=== PATIENT | female | born 1980 | race Caucasian/White ===

== ENCOUNTER → 2016-05-04 | Outpatient (CLI) | payer BC | LOC: RAD 08:30 | PROVIDERS: ATTEND Family Medicine | DX: K76.89 Other specified diseases of liver (principal) | CPT/HCPCS: 76705 ==

== ENCOUNTER → 2016-06-11 | Outpatient (CLI) | payer BC ==
[~2016-06-11] MED LIST: AMOX500C5 PO; AZIT250T81 PO; BACL10TA PO; CEPH-507 PO; CETI10TA20 PO; CETI1TAB PO; CIPR2.5D EACH EAR; CYCL5TAB PO; FLUT16SP NSEACH; HYDR-3702 PO; HYDR-3754 PO; LD2VS20U MM; LD2VS20U PO; NF-CIPDEC LEFT EAR; OMEP20TA PO; ONDA4TAB8 PO; OXYC1TAB87 PO; TRM50T PO; [UNRECOGNIZED DRUG - CODE] INJ
--- NOTE | 2016-06-11 19:31 | Diagnostic Imaging Report ---
PROCEDURE: US Thyroid. INDICATION: History of thyroid mass. Patient is post surgery for removal of mass noted on prior imaging. TECHNIQUE: Grayscale sonographic images of the thyroid gland. CORRELATION STUDY: 12/12/2015. FINDINGS: RIGHT LOBE: 3.8 x 1.7 x 2.0 cm. There is a slightly elongated, slightly isoechoic nodular area about the inferior pole. This measures approximately 16 x 5 x 6 mm. There may be a very thin hypoechoic halo. There is presence of internal vascularity. No significant calcifications. The remainder of the right lobe relatively unremarkable. LEFT LOBE: Surgically absent. No definitive soft tissue echogenicity to suggest residual thyroid tissue in the thyroid bed. Isthmus has an unremarkable appearance. IMPRESSION: Interval surgical resection of left lobe of thyroid gland. Subtle relatively isoechoic solid-appearing nodule inferior pole right lobe. This finding is somewhat nonspecific but does appear to be perhaps slightly increased in size from prior study. Continued followup imaging evaluation recommended. Dictated by: Dictated on workstation # [id number]
== END ==
LOC: RAD 12:46
PROVIDERS: ATTEND Family Medicine
DX: E07.9 Disorder of thyroid, unspecified (principal)
CPT/HCPCS: 76536